=== PATIENT | female | born 1990 | race Native Hawaiian/Other Pacific Islander ===

== ENCOUNTER → 2018-07-30 15:51 | Outpatient (CLI) | payer OTHER, SELFPAY ==
--- NOTE | 2018-07-30 15:54 | DI.US.S_ITS ---
PROCEDURE: US OB <= 14 WEEKS FETUS INDICATIONS: Dating : initial US OUTSIDE/PRIOR DATING DATA: Last menstrual period (LMP): 05/30/18. LMP-based estimated date of delivery (LUIS): 03/06/19. First dating scan (date and location): 07/30/18. Estimated date of delivery (LUIS) from first dating scan: 03/06/19. TECHNIQUE: Real-time scanning was performed of the fetus and maternal pelvic organs, with image documentation. Endovaginal scanning was also performed to better visualize the fetus and maternal ovaries. COMPARISON: None. FINDINGS: Embryo: [place]-rump length measures 2.1 cm corresponding to 8 weeks 5 days. Embryonic heart rate measures 175 beats per minute. Measurement variability in dating: +/- 4 weeks by LMP, +/- 7 days by mean sac diameter (use before 6 weeks gestation if crown-rump length not able to be measured), +/- 5 days by crown-rump length (up to 8 weeks 6 days gestation), +/- 7 days by crown-rump length (up to 13 weeks 6 days gestation). Maternal organs: Ovaries within normal limits. Limited images through the kidneys demonstrate no hydronephrosis. IMPRESSION: 8 week 5 day single living IUP. Dictated by: Per Gore [facility] Interpreted: Trino Watkins MD on 07/31/2018 at 9:03 Approved by: Trino Watkins M.D. on 07/31/2018 at 10:44
[2018-07-30 16:56] LABS: Add Manual Diff / Slide Review NO; Basophils Absolute Auto 0 /uL (0-100); Basophils Percent Auto 0.3 % (0-2); Eosinophils Absolute Auto 100 /uL (0-450); Eosinophils Percent Auto 0.4 % (2-4); Hematocrit 41.9 % (36-46); Lymphocytes Absolute Auto 1800 /uL (1100-4500); Mean Corpuscular HGB Conc 33.4 % (30-36); Mean Corpuscular Hemoglobin 29.9 PG (26-34); Mean Corpuscular Volume 89.6 fL (80-100); Monocytes Absolute Auto 1100 /uL (0-900); Monocytes Percent Auto 7.8 % (3-14); Neutrophils Absolute Auto 11100 /uL (1500-7000); Neutrophils Percent Auto 78.5 % (50-75); Platelet Count 333 X10^3/uL (150-400); Red Blood Cell Count 4.67 X10^6/uL (4.0-5.2); Red Cell Distribution Width 12.9 % (11.6-14.8); White Blood Cell Count 14.1 X10^3/uL (4.5-11.0)
[2018-07-30 17:36] LABS: Hepatitis B Surface Antigen NEGATIVE s/c (NEGATIVE)
[2018-07-30 17:54] LABS: HIV 1 and 2 Antibody NEGATIVE (NEGATIVE); Hep C Virus Ab w/Reflex Quant NEGATIVE s/c (NEGATIVE)
[2018-07-30 18:48] LABS: Appearance Urine UA CLEAR; Bilirubin Urine UA NEGATIVE (NEGATIVE); Color Urine UA YELLOW; Glucose Urine UA NEGATIVE (Negative); Ketones Urine UA NEGATIVE (NEGATIVE); Leukocyte Esterase Urine UA 1+ (NEGATIVE); Nitrite Urine UA NEGATIVE (Negative); Occult Blood Urine UA 2+ (Negative); Protein Urine UA NEGATIVE (Negative); Specific Gravity Urine UA 1.025 (1.000-1.035); Urobilinogen Urine UA 0.2 E.U./dL (0.2); pH Urine UA 5.5 (4.5-8.0)
[2018-07-30 18:53] LABS: RBC Urine 5-10/HPF (0-5/HPF); WBC Urine 5-10/HPF (0-5/HPF)
[2018-07-30 18:54] LABS: Bacteria Urine Few (2-10); Squamous Epithelial Cell Urine 5-10 /HPF
[2018-08-01 14:07] LABS: RPR Screen Nonreactive (Nonreactive)
== END ==
PROVIDERS: PCP Physician Assistant Medical; Visit Provider Family Medicine
DX: Z34.81 Encounter for supervision of other normal pregnancy, first trimester (principal); Z3A.08 8 weeks gestation of pregnancy
CPT/HCPCS: 36415; 76801; 76817; 80055; 81003; 81015; 86703; 86787; 86803; 86850; 86900; 86901; 87086

== ENCOUNTER → 2018-09-07 09:41 | Outpatient (CLI) | payer OTHER, SELFPAY | PROVIDERS: PCP Physician Assistant Medical; Visit Provider Family Medicine | DX: Z34.82 Encounter for supervision of other normal pregnancy, second trimester (principal); Z3A.14 14 weeks gestation of pregnancy | CPT/HCPCS: 87086 ==

== ENCOUNTER → 2018-10-06 09:28 | Outpatient (CLI) | payer BC, SELFPAY ==
[2018-10-12 09:05] LABS: AFP, Serum 42.8 ng/mL; Calc Gestational Age 18.3; Cigarette Smoker N; Donated Egg NOT GIVEN; Donor Egg Age NOT GIVEN; Estriol, Free 1.27 ng/mL; Inhibin A, Dimeric 154 pg/mL; Maternal Ethnicity OTHER; Maternal Weight 223 lbs; Number of Fetuses 1; Previous Pregnancy Down Syndro NOT GIVEN; hCG, MoM 1.44; hCG, Serum 29.1 IU/mL
== END ==
PROVIDERS: PCP Physician Assistant Medical; Visit Provider Family Medicine
DX: Z34.82 Encounter for supervision of other normal pregnancy, second trimester (principal); Z3A.18 18 weeks gestation of pregnancy
CPT/HCPCS: 36415; 82105; 82677; 84702; 86336

== ENCOUNTER → 2018-10-19 07:10 | Outpatient (CLI) | payer BC, SELFPAY ==
--- NOTE | 2018-10-19 07:13 | DI.US.S_ITS ---
PROCEDURE: US OB >= 14 WEEKS FETUS INDICATIONS: ANATOMIC SURVEY OUTSIDE/PRIOR DATING DATA: Last menstrual period (LMP): 05/30/18. LMP-based estimated date of delivery (LUIS): 03/06/19. First dating scan (date and location): 07/30/18. Estimated date of delivery (LUIS) from first dating scan: 03/06/19. TECHNIQUE: Real-time scanning was performed of the fetus, with image documentation and biometric measurements. Endovaginal scanning: Not needed for this study COMPARISON: 07/30/18 FINDINGS: General: A single living intrauterine gestation is present. Presentation: Vertex. Placenta: Placental position is anterior, without previa. Amniotic fluid index: 13.5 cm, normal range is 5-24 cm. heart rate: 147 beats per minute. Maternal cervical canal: 4.1 cm long. Normal lower limit is 2.5 cm. biometrics: Biparietal diameter: 5.2 cm, 21 weeks 6 days Head circumference: 19.1 cm, 21 weeks 3 days Abdominal circumference: 16.9 cm, 21 weeks 6 days Femur length: 3.2 cm, 20 weeks 0 days Estimated gestational age from initial scan: 20 weeks 2 days Composite gestational age from present scan: 21 weeks 2 days Estimated weight and percentile: 402 g, 80th percentile Measurement variability for biometric dating: +/- 7 days from 14 weeks to 15 weeks 6 days gestation, +/- 10 days from 16 weeks to 21 weeks 6 days gestation, +/- 2 weeks from 22 weeks to 27 weeks 6 days gestation, +/- 3 weeks for 28 weeks gestation or later. weight reference: 4500 g or EFW >90/95% is considered macrosomia or large for gestational age. EFW <10% is small for gestational age. EFW 5% or less is considered intra-uterine growth restriction. Anatomic survey: Neuro: Ventricles are non-dilated at less than 10 mm. Cisterna magna is normal at 3-11 mm. Cerebellum is normal in size and morphology. Nuchal skin fold: Normal at less than 6 mm between 14-21 weeks gestational age. Face: Nose and lips, facial profile are normal. Spine: No evidence for spina bifida. Heart: 4-chambered heart is present, with normal ventricular outflow tracts. Diaphragm: Diaphragm is intact. Stomach: Left-sided stomach is present. Kidneys: No hydronephrosis. Normal is less than 5 mm in 2nd trimester, less than 7 mm in 3rd trimester. Cord: 3-vessel cord has orthotopic insertion. Bladder: Normal in size. Extremities: All 4 extremities identified. IMPRESSION: Appropriate interval growth, no anomaly found, delivery date is projected to be centered on 03/06/19. Dictated by: Binu Monterroso M.D. on 10/19/2018 at 9:17 Approved by: Binu Monterroso M.D. on 10/19/2018 at 9:20
== END ==
PROVIDERS: PCP Physician Assistant Medical; Visit Provider Family Medicine
DX: Z34.82 Encounter for supervision of other normal pregnancy, second trimester (principal); Z3A.21 21 weeks gestation of pregnancy
CPT/HCPCS: 76811

== ENCOUNTER → 2018-11-21 08:05 | Outpatient (CLI) | payer BC, SELFPAY ==
[2018-11-21 09:57] LABS: Hemoglobin 12.7 g/dL (12.0-16.0)
[2018-11-21 10:26] LABS: GTT (PREG) 1 Hour PP 50gm Dose 117 mg/dL (76-139)
== END ==
PROVIDERS: PCP Physician Assistant Medical; Visit Provider Family Medicine
DX: Z34.82 Encounter for supervision of other normal pregnancy, second trimester (principal); Z3A.22 22 weeks gestation of pregnancy
CPT/HCPCS: 36415; 82950; 85014; 85018

== ENCOUNTER → 2019-02-10 09:15 | Outpatient (CLI) | payer BC, SELFPAY ==
[2019-02-11 15:48] LABS: Strep Grp B PCR NEG for Grp B Strep
== END ==
PROVIDERS: PCP Physician Assistant Medical; Visit Provider Family Medicine
DX: Z3A.36 36 weeks gestation of pregnancy (principal)
CPT/HCPCS: 87653

== ENCOUNTER 2019-03-10 10:49 | Inpatient (IN) | payer BC, SELFPAY ==
[2019-03-10 12:28] LABS: Add Manual Diff / Slide Review NO; Basophils Absolute Auto 100 /uL (0-100); Basophils Percent Auto 0.6 % (0-2); Eosinophils Absolute Auto 0 /uL (0-450); Eosinophils Percent Auto 0.1 % (2-4); Hematocrit 36.2 % (36-46); Lymphocytes Absolute Auto 1200 /uL (1100-4500); Lymphocytes Percent Auto 9.5 % (25-40); Mean Corpuscular HGB Conc 33.1 % (30-36); Mean Corpuscular Hemoglobin 27.6 PG (26-34); Mean Corpuscular Volume 83.3 fL (80-100); Monocytes Absolute Auto 800 /uL (0-900); Neutrophils Absolute Auto 10800 /uL (1500-7000); Neutrophils Percent Auto 83.8 % (50-75); Platelet Count 297 X10^3/uL (150-400); Red Blood Cell Count 4.34 X10^6/uL (4.0-5.2); Red Cell Distribution Width 13.8 % (11.6-14.8); White Blood Cell Count 12.9 X10^3/uL (4.5-11.0)
--- NOTE | 2019-03-10 12:31 | P.HPOB_ITS ---
OB HPI Date/Time Date of admission: 03/10/19 Date Patient Seen: 03/10/19 Time Patient Seen: 12:31 History of Present Condition Chief complaint: OBS : 2 Para: 1 Estimated Date of Delivery: 03/07/19 Estimated Gestational Age (weeks): 40 Narrative: Wes Fraser is a 28 year old female admitted in active labor History of Present care: good care, initiated at week # (10), number of visits (13) and pounds weight gain (7) Dating criteria: LMP confirmed by 1st trimester US Ultrasounds: normal mid trimester US Obstetrical complications: none Medical complications: none Preadmission Labs Blood type: A (+) positive -: Antibody screen: negative, GBS status: negative, HBsAG: negative, HIV: negative and RPR/VDLR: negative -: Rubella: immune HCAB: negative Quad screen: Normal 1 hr GTT: 117 Prior (ies) History: 01/20/2013 40 week vaginal delivery female epidural catheter Evaluation Evaluation Baseline heart rate: 120 Variability: Moderate (11-25) monitor accelerations: Present monitor decelerations: Absent Uterine Contraction Intensity: Moderate Category of Tracing: I Cervical dilation (cm): 5 PFSH Social History Smoking Status: Former smoker Meds Home Medications and Allergies Home Medications Medication Instructions Recorded Confirmed Type acetaminophen 325 mg capsule 325 mg PO Q6H PRN 07/29/18 07/29/18 History prenat.vits,fabian,kkk-thxl-mapmo 1 tab PO DAILY 07/29/18 07/29/18 History Allergies Allergy/AdvReac Type Severity Reaction Status Date / Time No Known Drug Allergies Allergy Verified 02/24/19 08:49 Review of Systems Review of Systems Narrative: Patient denies any headaches, scotomata, epigastric pain. No leakage of fluid. No fevers. ROS Unobtainable: All systems reviewed & are unremarkable except as noted in HPI and below Exam Narrative Exam Narrative: HEENT exam within normal limits. Lungs are clear to auscultation percussion. Heart is regular rate and rhythm no S3-S4 or murmurs. Abdomen is gravid. Fetus is vertex. Extremities with trace edema and nontender . Objective Labs Result Diagrams: 03/10/19 12:20 Assessment and Plan Assessment and Plan Assessment and Plan narrative: 40 week gestation in active labor. Patient is requesting epidural catheter. Anticipate vaginal delivery.
[2019-03-10 14:17] VITALS: BP 141/86
[2019-03-10] MEDS: LACTATED RINGERS 1,000 ML 100 ML IV ×2 (16:43→18:05)
[2019-03-10] MEDS: OXYTOCIN PREMIX 30 UNIT/500 ML PLAST..BAG IV (19:11)
[2019-03-10] MEDS: FENT 2MCG/ML BUPIV 0.125% EPI 200 MCG/100 ML PLAST..BAG 13.5 MCG EPIDURAL (21:10)
--- NOTE | 2019-03-10 23:02 | PM.OBPRVD ---
Labor & Delivery Delivery date: 03/10/19 Cervical ripening method: none Induction method: none Delivery augmentation: rupture of membranes Delivery monitor: external FHT, external uterine and internal uterine Route of delivery: L&D Laceration Description: Perineal - 2nd Degree Delivery repair: chromic (3 0) Estimated blood loss (mL): 100 Anesthesia type: Epidural Narrative: Patient arrived on Labor and delivery in active labor. She received an epidural catheter for pain control. She was AROM for clear fluid. There was very slow progress after that so a small amount of Pitocin was begun. The fetus had a prolonged bradycardic episode for about 3 minutes. Eventually responded to position change, fluid bolus, DC the Pitocin. A internal pressure catheter was placed. The patient had intermittent bradycardic episodes not as long after that. heart tones were reassuring in between the bradycardic episodes. The patient delivered spontaneously, over an intact perineum. The viable female infant was placed on maternal abdomen. After the cord stopped pulsating the cord was clamped, cut, cord bloods obtained. The placenta delivered spontaneously, intact, with 3 vessels. Patient had a second-degree perineal tear. No cervical or vaginal tears. The tear was repaired with 3 0 chromic suture in the usual 2 layer fashion. Both infant and mother doing well. A loop of the cord was delivered with the chest this may have been the cause of the decelerations. [place] Baby 1: Infant gender: Female Presentation: vertex position: Right Occiput Anterior Placenta delivery description: Spontaneous cord vessel description: 3 Vessels score (1 min): 9 score (5 min): 9 Plan for aftercare: Routine post vaginal delivery
[2019-03-11] MEDS: LANOLIN OINT 7 GM 1 APPLIC TOP (01:26)
[2019-03-11] MEDS: IBUPROFEN 600 MG TABLET PO ×4 (01:27→19:27)
[2019-03-11] MEDS: DERMOPLAST SPRAY 20% 60 ML 1 SPRAY TOP (01:27)
[2019-03-11 06:53] LABS: Hematocrit 35.8 % (36-46); Hemoglobin 11.7 g/dL (12.0-16.0)
--- NOTE | 2019-03-11 12:44 | P.PNOB_ITS ---
Subjective - OB Subjective Patient comments: no complaints [place] baby status: doing well feeding status: exclusively breast feeding Date Patient Seen: 03/11/19 Time Patient Seen: 12:44 Exam Vital Signs (past 8 hours): Blood pressure 110/73, pulse 75, temperature 98? Narrative Exam Narrative: Abdomen is soft, nontender. Uterus is firm, at U, nontender. Mild lochia. Extremities with out edema and nontender. Objective Labs Result Diagrams: 03/11/19 06:40 Labs: Laboratory Results - last 24 hr 03/10/19 03/11/19 12:20 06:40 Hgb 11.7 L Hct 35.8 L Blood Type A Positive Antibody Screen Negative Assessment & Plan Assessment and Plan (1) Vaginal delivery: Status: Acute Assessment and plan: Patient is day 1. Doing well. Routine care. Probable home tomorrow. Current Visit: Yes Time Spent With Patient Time: Total time spent is greater than 50% in coordination of care (as documented) at patient's floor/unit and/or counseling patient: Time with patient: less than 15 minutes
[2019-03-11 19:27] VITALS: TEMP 36.6
[2019-03-12] MEDS: IBUPROFEN 600 MG TABLET PO ×2 (04:18→11:14)
--- NOTE | 2019-03-12 07:58 | PM.OBDS.1 ---
Discharge Providers Provider Date of admission: 03/10/19 10:49 Discharge Date: 03/12/19 Primary care physician: Cinthia Melgar PA-C Consults: 03/10/19 23:08 Consult to Manager Of Community Relations Routine Comment: Discharge provider: Fany Olivares MD Summary Hospital Course Date Patient Seen: 03/12/19 Time Patient Seen: 08:00 Procedures: Epidural catheter, vaginal delivery, repair of second-degree laceration Hospital Course: Patient arrived on Labor and delivery in active labor. She received an epidural catheter for pain control. She had a spontaneous vaginal delivery of a viable female . Patient and are doing well. Currently supplementing with breast-feeding. Blood pressure 98/68, pulse 67, temperature 97? Abdomen is soft, nontender. Uterus is firm, at U, nontender. The repair is intact. Mild lochia. Extremities without edema and nontender. Patient's blood type is A positive, she is rubella immune Peripartum Data Infant Delivery Method: Natural Vaginal Laceration description: Perineal - 2nd Degree Procedures: Epidural catheter, vaginal delivery, repair of second-degree tear complications: none 1: Gender: Female Disposition of : home Discharge Diagnosis (1) Vaginal delivery: Status: Acute Status at Discharge Cognitive/behavioral status at discharge: oriented Functional status at discharge: independent ambulation Overall status at discharge: patient is progressing back to baseline Time Spent with Patient Time attestation: Total time spent providing and/or coordinating discharge services: Time spent: Less than 30 minutes Objective Labs Result Diagrams: 03/11/19 06:40 Discharge Plan Discharge Plan Patient Disposition: Home Discharge Med Rec/Prescriptions Prescriptions: Continued prenat.vits,fabian,gap-pexa-pywsa tablet 1 tab PO DAILY RF: 0 acetaminophen [Tylenol] 325 mg capsule 325 mg PO Q6H PRN (Reason: Pain, Mild) RF: 0 Follow up/Referrals: Cinthia Melgar PA-C [Primary Care Provider] - Estuardo Gonzalez MD [Physician] - 6 Weeks Provider Discharge Instructions Diet: Regular Activity: Nothing in vagina for 6 weeks Skin/Wound/Dressing Care Report to your healthcare provider any signs of infection, such as:: chills, fever and increased pain Discharge Data Primary Care Provider: Cinthia Melgar
[2019-03-12 11:33] VITALS: BP 104/72; PULSE 76; RESP 16; TEMP 36.3
== END 2019-03-12 12:45 | disposition home or self-care (01) | DRG 807 ==
PROVIDERS: Family Medicine; Admitting Provider Specialist; PCP Physician Assistant Medical; Visit Provider Specialist
DX: O76 Abnormality in fetal heart rate and rhythm complicating labor and delivery (principal); Z37.0 Single live birth; Z3A.40 40 weeks gestation of pregnancy; O70.1 Second degree perineal laceration during delivery
CPT/HCPCS: 01967; 36415; 59050; 59400; 59409; 76815; 85014; 85018; 85025; 86850; 86900; 86901; G0379; J2590

== ENCOUNTER 2020-11-06 16:53 | Emergency (ER) | payer BC, SELFPAY ==
[2020-11-06 17:02] VITALS: BP 144/67; PULSE 81; RESP 16; TEMP 36.9; O2SAT 97; BMI 39.8
--- NOTE | 2020-11-06 17:03 | ED_ITS ---
HPI - General Adult <Alli Galvez DO - Last Filed: 11/07/20 07:12> General Chief complaint: Abdominal Pain Stated complaint: REALLY BAD ABD PAIN Time Seen by Provider: 11/06/20 17:00 Source: patient Mode of arrival: Ambulatory Limitations: no limitations History of Present Illness HPI narrative: Patient is an otherwise healthy 30-year-old female here for evaluation of upper abdominal discomfort for the past couple years. She states that it started after she gave a couple years ago. Does seem to occur more after she eats. No nausea vomiting. Has not seen anybody for the symptoms prior to arrival. No urinary symptoms. No change in bowel habits. No fevers. Related Data Home Medications Medication Instructions Recorded Confirmed acetaminophen 325 mg capsule 325 mg PO Q6H PRN 07/29/18 04/21/19 prenat.vits,fabian,myk-ayou-ydmwg 1 tab PO DAILY 07/29/18 04/21/19 Previous Rx's Medication Instructions Recorded hydrocodone-acetaminophen 1 tab PO Q4-6H PRN #10 tab 11/06/20 ondansetron 4 mg PO TID-QID PRN #10 tab 11/06/20 Allergies Allergy/AdvReac Type Severity Reaction Status Date / Time No Known Drug Allergies Allergy Verified 04/21/19 14:22 Review of Systems <Alli Galvez DO - Last Filed: 11/07/20 07:12> Constitutional Constitutional: Denies fever(s) and Denies headache(s) ENT Ears, Nose, Mouth, and Throat: Denies headache(s) Cardiovascular Cardiovascular: Denies chest pain and Denies dyspnea Respiratory Respiratory: Denies dyspnea Gastrointestinal Gastrointestinal: Reports abdominal pain, Denies change in bowel habits, Reports nausea and Denies vomiting Genitourinary Genitourinary: Denies dysuria Genitourinary: Denies dysuria Musculoskeletal Musculoskeletal: Denies arthralgias and Denies myalgias Integumentary/Breasts Skin/Breast: Denies rash Neurologic Neurologic: Denies behavioral changes and Denies headache(s) Psychiatric Psychiatric: Denies behavioral changes Hematologic/Lymphatic On Anticoagulants: No Allergic/Immunologic Allergic/Immunologic: Denies urticaria Patient History <Alli Galvez DO - Last Filed: 11/07/20 07:12> Medical History Vaginal delivery Social History Smoking Status: Former smoker Smoking Status: Former smoker Exam <Alli Galvez DO - Last Filed: 11/07/20 07:12> Initial Vital Signs Initial Vital Signs: Vital Signs Temperature 98.4 F 11/06/20 17:02 Pulse Rate 81 11/06/20 17:02 Respiratory Rate 16 11/06/20 17:02 Blood Pressure 144/67 H 11/06/20 17:02 Pulse Oximetry 97 11/06/20 17:02 Const General: cooperative, comfortable, well developed and well groomed Limitations: mental status not altered HENMT Head: normal to inspection and normocephalic Resp Effort & Inspection: normal respiratory effort Auscultation: clear to auscultation bilaterally Cardio Rate: regular rate Rhythm: regular rhythm GI Inspection: non-distended Palpation: soft, No firm and tender (Bilateral upper abdomen) Back/Spine/Pelvis Back: No CVA tenderness Skin Lesions: no lesions Rashes: no rashes Neuro General: patient alert, patient awake and patient oriented x3 Cognition: normal cognition Speech: speech normal Extrem General: normal to inspection and capillary refill normal Psych Appearance: grossly normal and well kempt <Navdeep Lu DO - Last Filed: 11/06/20 21:48> Initial Vital Signs Initial Vital Signs: Vital Signs Temperature 98.4 F 11/06/20 17:02 Pulse Rate 81 11/06/20 17:02 Respiratory Rate 16 11/06/20 17:02 Blood Pressure 144/67 H 11/06/20 17:02 Pulse Oximetry 97 11/06/20 17:02 Course <Alli Galvez DO - Last Filed: 11/07/20 07:12> Orders Ordered: Discontinued Medications Sodium Chloride (Normal Saline 0.9%) 1,000 mls @ 1,000 mls/hr IV BOLUS ONE Stop: 11/06/20 19:11 Last Infusion: 11/06/20 19:44 Dose: 0 mls/hr Documented by: Admin: 11/06/20 18:31 Dose: 1,000 mls/hr Documented by: WILSON Vital Signs Vital signs: Vital Signs - 8 hr 11/06/20 17:02 11/06/20 19:11 Temperature 98.4 F Pulse Rate 81 72 Respiratory Rate 16 15 Blood Pressure 144/67 H 115/70 Pulse Oximetry 97 100 <Navdeep Lu DO - Last Filed: 11/06/20 21:48> Course Course Narrative: However see this patient in sign-out from Dr. Galvez. I performed independent history and physical exam. Patient has no pain and has had no vomiting for the duration of her visit. She does have a slight bump in her LFTs but no surgical findings on imaging regarding her gallbladder. She is feeling quite well, tolerating orals, not septic. She has been given extensive return precautions and questions have been answered to her apparent satisfaction Orders Ordered: Discontinued Medications Sodium Chloride (Normal Saline 0.9%) 1,000 mls @ 1,000 mls/hr IV BOLUS ONE Stop: 11/06/20 19:11 Last Infusion: 11/06/20 19:44 Dose: 0 mls/hr Documented by: Admin: 11/06/20 18:31 Dose: 1,000 mls/hr Documented by: WILSON Vital Signs Vital signs: Vital Signs - 8 hr 11/06/20 17:02 11/06/20 19:11 Temperature 98.4 F Pulse Rate 81 72 Respiratory Rate 16 15 Blood Pressure 144/67 H 115/70 Pulse Oximetry 97 100 Medical Decision Making <Alli Galvez DO - Last Filed: 11/07/20 07:12> Lab Data Lab results reviewed: Yes I reviewed the patient's lab results. Result diagrams: 11/06/20 17:10 11/06/20 17:10 Labs: Lab Results 11/06/20 11/06/20 Range/Units 17:10 17:10 WBC 21.1 H (4.5-11.0) X10^3/uL RBC 4.98 (4.0-5.2) X10^6/uL Hgb 15.0 (12.0-16.0) g/dL Hct 43.8 (36-46) % MCV 88.0 (80-100) fL MCH 30.2 (26-34) PG MCHC 34.3 (30-36) % RDW 12.8 (11.6-14.8) % Plt Count 343 (150-400) X10^3/uL Neut % (Auto) 85.6 H (50-75) % Lymph % (Auto) 8.7 L (25-40) % [place] % (Auto) 5.2 (3-14) % Eos % (Auto) 0.2 L (2-4) % Baso % (Auto) 0.3 (0-2) % Neut # (Auto) 50055 H (6041-6759) /uL Lymph # (Auto) 1800 (2518-3856) /uL [place] # (Auto) 1100 H (0-900) /uL Eos # (Auto) 0 (0-450) /uL Baso # (Auto) 100 (0-100) /uL Sodium 139 (137-145) mmol/L Potassium 3.9 (3.4-5.1) mmol/L Chloride 106 (98-107) mmol/L Carbon Dioxide 23 (22-32) mmol/L BUN 14 (7-17) mg/dL Creatinine 0.63 (0.52-1.04) mg/dL Estimated GFR > 60.0 (>60) mL/min BUN/Creatinine Ratio 22.2 H (6-22) Glucose 110 H (70-100) mg/dL Calcium 10.1 (8.4-10.2) mg/dL Total Bilirubin 0.7 (0.2-1.3) mg/dL AST 204 H (14-36) IU/L ALT 106 H (<35) IU/L Alkaline Phosphatase 100 (38-126) U/L Total Protein 7.9 (6.3-8.2) g/dL Albumin 4.6 (3.5-5.0) g/dL Globulin 3.3 (1.7-4.1) g/dL Albumin/Globulin Ratio 1.4 (1.0-2.8) Lipase 90 (23-300) U/L Point of Care Testing Test Results Negative Urine Dip Bedside Urine Glucose Negative Bedside Urine Bilirubin - Negative Bedside Urine Ketone - Negative Urine Specific [place] 1.030 Bedside Urine Occult Blood + Bedside Urine pH 6.0 Bedside Urine Protein - Negative Bedside Urine Urobilinogen +/- 1mg Bedside Urine Nitrite - Negative Bedside Urine Leukocytes - Negative Esterase Point of care testing: Point of Care Testing Test Results Negative Urine Dip Bedside Urine Glucose Negative Bedside Urine Bilirubin - Negative Bedside Urine Ketone - Negative Urine Specific [place] 1.030 Bedside Urine Occult Blood + Bedside Urine pH 6.0 Bedside Urine Protein - Negative Bedside Urine Urobilinogen +/- 1mg Bedside Urine Nitrite - Negative Bedside Urine Leukocytes - Negative Esterase Imaging Data US - abdomen: Radiologist's Impression: [address] [id number] ReportSigned Patient: Wes Fraser LMR#: [id number]: 1990Acct:[id number]/Sex: 30 / FDate of Service: 11/06/20Loc: EDAccession Number: [id number] Procedure: US abdomen limited Ordering Provider: Alli Galvez D.O. PROCEDURE: US ABDOMEN LIMITED INDICATIONS: Right upper quadrant abdominal pain after eating TECHNIQUE: Real-time scanning was performed of the abdominal and retroperitoneal organs, with image documentation. COMPARISON: None. FINDINGS: Liver: Liver is normal in size and homogeneous in echotexture. Gallbladder: The gallbladder contains numerous gallstones without associated wall thickening, pericholecystic fluid or abnormal sonographic Hyl[place] sign. Biliary ducts: Intrahepatic bile ducts are non-dilated. Extrahepatic bile duct caliber measures 6 mm. Normal is 6-7 mm or less in diameter, or 10 mm or less post-cholecystectomy. Pancreas: Visualized portions of the pancreas are sonographically normal. Miscellaneous: No free abdominal fluid. IMPRESSION: Cholelithiasis without sonographic evidence for acute cholecystitis. Dictated by: Sidney Rene M.D. on 11/06/2020 at 18:05 Approved by: Sidney Rene M.D. on 11/06/2020 at 18:06 [facility] Narrative Medical decision making narrative: Patient has a relatively benign abdominal exam and has had symptoms off and on for the past 2 years. Does have a slight elevation in her LFTs. Has a normal lipase. Ultrasound shows cholelithiasis without signs of cholecystitis. She does have a fairly significant leukocytosis which could be related to Potential biliary colic however I feel that her physical exam today is not 100% consistent with that. A CT scan of the abdomen and pelvis is ordered to evaluate for other potential etiology. Care turned over to Dr. Lu to follow-up and disposition. <Navdeep Lu DO - Last Filed: 11/06/20 21:48> Lab Data Labs: Lab Results 11/06/20 11/06/20 Range/Units 17:10 17:10 WBC 21.1 H (4.5-11.0) X10^3/uL RBC 4.98 (4.0-5.2) X10^6/uL Hgb 15.0 (12.0-16.0) g/dL Hct 43.8 (36-46) % MCV 88.0 (80-100) fL MCH 30.2 (26-34) PG MCHC 34.3 (30-36) % RDW 12.8 (11.6-14.8) % Plt Count 343 (150-400) X10^3/uL Neut % (Auto) 85.6 H (50-75) % Lymph % (Auto) 8.7 L (25-40) % [place] % (Auto) 5.2 (3-14) % Eos % (Auto) 0.2 L (2-4) % Baso % (Auto) 0.3 (0-2) % Neut # (Auto) 16874 H (9406-2671) /uL Lymph # (Auto) 1800 (6902-1372) /uL [place] # (Auto) 1100 H (0-900) /uL Eos # (Auto) 0 (0-450) /uL Baso # (Auto) 100 (0-100) /uL Sodium 139 (137-145) mmol/L Potassium 3.9 (3.4-5.1) mmol/L Chloride 106 (98-107) mmol/L Carbon Dioxide 23 (22-32) mmol/L BUN 14 (7-17) mg/dL Creatinine 0.63 (0.52-1.04) mg/dL Estimated GFR > 60.0 (>60) mL/min BUN/Creatinine Ratio 22.2 H (6-22) Glucose 110 H (70-100) mg/dL Calcium 10.1 (8.4-10.2) mg/dL Total Bilirubin 0.7 (0.2-1.3) mg/dL AST 204 H (14-36) IU/L ALT 106 H (<35) IU/L Alkaline Phosphatase 100 (38-126) U/L Total Protein 7.9 (6.3-8.2) g/dL Albumin 4.6 (3.5-5.0) g/dL Globulin 3.3 (1.7-4.1) g/dL Albumin/Globulin Ratio 1.4 (1.0-2.8) Lipase 90 (23-300) U/L Point of Care Testing Test Results Negative Urine Dip Bedside Urine Glucose Negative Bedside Urine Bilirubin - Negative Bedside Urine Ketone - Negative Urine Specific [place] 1.030 Bedside Urine Occult Blood + Bedside Urine pH 6.0 Bedside Urine Protein - Negative Bedside Urine Urobilinogen +/- 1mg Bedside Urine Nitrite - Negative Bedside Urine Leukocytes - Negative Esterase Point of care testing: Point of Care Testing Test Results Negative Urine Dip Bedside Urine Glucose Negative Bedside Urine Bilirubin - Negative Bedside Urine Ketone - Negative Urine Specific [place] 1.030 Bedside Urine Occult Blood + Bedside Urine pH 6.0 Bedside Urine Protein - Negative Bedside Urine Urobilinogen +/- 1mg Bedside Urine Nitrite - Negative Bedside Urine Leukocytes - Negative Esterase Discharge Plan Departure Patient Disposition: Home Clinical Impression: Acute epigastric pain, Abnormal transaminases Leukocytosis Qualifiers: Leukocytosis type: unspecified Qualified Code(s): D72.829 - Elevated white blood cell count, unspecified Instructions: DI for Abdominal Pain-Adult Activity Restrictions/Additional Instructions: *You have been diagnosed with [epigastric pain with elevation of white blood cells but reassuring imaging including ultrasound and CT scan] *What to do: *Take medications as directed *Follow up with your primary care provider in 2-3 days, call for an appointment. Let them know you were seen in the Emergency Department and that we ask that you be seen in follow up. Also, as Dr. Galvez discussed we will give you contact information for the local surgeon to follow up with for further evaluation and monitoring your gallbladder *Return to ER if you should have any new, worsening or concerning symptoms, such as [increasing pain, fever, chills, persistent vomiting or other bothersome symptoms] Prescriptions: New ondansetron 4 mg tablet,disintegrating 4 mg PO TID-QID PRN (Reason: nausea and vomiting) Qty: 10 RF: 0 hydrocodone-acetaminophen 5-325 mg tablet 1 tab PO Q4-6H PRN (Reason: pain) Qty: 10 RF: 0 No Action prenat.vits,fabian,uyq-yzak-nbtlb tablet 1 tab PO DAILY RF: 0 acetaminophen [Tylenol] 325 mg capsule 325 mg PO Q6H PRN (Reason: Pain, Mild) RF: 0 Referrals: Cinthia Melgar PA-C [Primary Care Provider] - Aristeo Sherman MD [Physician] -
[2020-11-06 17:17] LABS: Add Manual Diff / Slide Review NO; Basophils Absolute Auto 100 /uL (0-100); Basophils Percent Auto 0.3 % (0-2); Eosinophils Absolute Auto 0 /uL (0-450); Eosinophils Percent Auto 0.2 % (2-4); Hematocrit 43.8 % (36-46); Lymphocytes Absolute Auto 1800 /uL (1100-4500); Lymphocytes Percent Auto 8.7 % (25-40); Mean Corpuscular HGB Conc 34.3 % (30-36); Mean Corpuscular Hemoglobin 30.2 PG (26-34); Monocytes Absolute Auto 1100 /uL (0-900); Monocytes Percent Auto 5.2 % (3-14); Neutrophils Absolute Auto 18100 /uL (1500-7000); Neutrophils Percent Auto 85.6 % (50-75); Platelet Count 343 X10^3/uL (150-400); Red Blood Cell Count 4.98 X10^6/uL (4.0-5.2); Red Cell Distribution Width 12.8 % (11.6-14.8); White Blood Cell Count 21.1 X10^3/uL (4.5-11.0)
[2020-11-06 18:03] LABS: Alanine Aminotransferase 106 IU/L (<35); Albumin 4.6 g/dL (3.5-5.0); Albumin Globulin Ratio 1.4 (1.0-2.8); Alkaline Phosphatase 100 U/L (38-126); Aspartate Aminotransferase 204 IU/L (14-36); BUN Creatinine Ratio 22.2 (6-22); Bilirubin Total 0.7 mg/dL (0.2-1.3); Blood Urea Nitrogen 14 mg/dL (7-17); Calcium 10.1 mg/dL (8.4-10.2); Carbon Dioxide 23 mmol/L (22-32); Chloride 106 mmol/L (98-107); Estimated Glomerular Filt Rate > 60.0 mL/min (>60); Globulin 3.3 g/dL (1.7-4.1); Glucose 110 mg/dL (70-100); HEMOLYSIS 32 (0-50); Lipase 90 U/L (23-300); Potassium 3.9 mmol/L (3.4-5.1); Sodium 139 mmol/L (137-145); Total Protein 7.9 g/dL (6.3-8.2)
--- NOTE | 2020-11-06 18:16 | DI.CT.S_ITS ---
PROCEDURE: CT ABDOMEN PELVIS W CON INDICATIONS: Generalized abdominal pain, leukocytosis TECHNIQUE: After the administration of intravenous contrast, 5 mm thick sections acquired from the diaphragm to the symphysis. 5 mm coronal and sagittal reformats were acquired. For radiation dose reduction, the following was used: automated exposure control, adjustment of mA and/or kV according to patient size. COMPARISON: [facility], , US ABDOMEN LIMITED, 11/06/2020, 16:35. FINDINGS: Image quality: Excellent. ABDOMEN: Lung bases: Lung bases are clear. Heart size is normal. Solid organs: Liver is normal in size and enhancement. Gallbladder contains numerous gallstones as noted on comparison ultrasound. No significant pericholecystic inflammatory stranding. The common bile duct is prominent measuring approximately 7-8 mm in diameter. Biliary system is otherwise non dilated. Pancreas enhances normally. Spleen is normal in size and enhancement. No adrenal nodules. Kidneys demonstrate normal size and enhancement, without hydronephrosis. Peritoneum and bowel: Bowel loops demonstrate normal wall thickness and caliber. No free fluid or air. Normal appendix. Nodes and vessels: No retroperitoneal or mesenteric adenopathy by size criteria. Aorta and inferior vena cava are normal in size. Miscellaneous: No ventral hernias. PELVIS: Genitourinary: Bladder wall thickness is normal. Miscellaneous: No inguinal hernias or adenopathy. Bones: No suspicious bony lesions. No vertebral body compression fractures. IMPRESSION: Cholelithiasis without CT evidence for acute cholecystitis. There is mild prominence of the common bile duct measuring between 7-8 mm in diameter. This measures slightly larger compared to sonographic evaluation from earlier same day. Normal appendix. Otherwise, no acute abnormalities identified in the abdomen or pelvis to explain patient's leukocytosis. Dictated by: Sidney Rene M.D. on 11/06/2020 at 19:07 Approved by: Sidney Rene M.D. on 11/06/2020 at 19:13
[2020-11-06] MEDS: SODIUM CHLORIDE 0.9% 1,000 ML 1000 ML IV (18:31)
[2020-11-06 19:11] VITALS: BP 115/70; PULSE 72; RESP 15; O2SAT 100
== END 2020-11-06 19:58 | disposition home or self-care (01) ==
PROVIDERS: Emergency Medicine; Emergency Provider Emergency Medicine; PCP Physician Assistant Medical
DX: R10.13 Epigastric pain (principal); D72.829 Elevated white blood cell count, unspecified; R74.8 Abnormal levels of other serum enzymes; R11.0 Nausea
CPT/HCPCS: 36415; 74177; 76705; 80053; 81003; 81025; 83690; 85025; 96360; 99284

== ENCOUNTER → 2020-12-18 09:41 | Outpatient (CLI) | payer BC, SELFPAY ==
[2020-12-18 11:09] LABS: COVID19 -Nasal RAPID Negative (Negative)
== END ==
PROVIDERS: PCP Registered Nurse; Visit Provider Surgery
DX: Z20.822 Contact with and (suspected) exposure to COVID-19 (principal)
CPT/HCPCS: 87635; C9803

== ENCOUNTER → 2020-12-19 14:05 | Day surgery (SDC) | payer BC, SELFPAY ==
[2020-12-14 15:21] VITALS: BMI 40.9
[2020-12-19] VITALS (11 sets, daily range): BP systolic 120–145; BP diastolic 76–88; PULSE 64–86; RESP 12–18; TEMP 36.2–36.6; O2SAT 94–99; BMI 40.7
--- NOTE | 2020-12-19 | PATH_ITS ---
[facility] Accession Number: [id number] . 01 Material submitted: . gallbladder - GALLBLADDER . 02 Diagnosis: Gallbladder, Cholecystectomy: Chronic cholecystitis, cholesterolosis, and cholelithiasis. MRV 12/22/2020 1042 Local . 02 Electronically signed: . Kiersten Park MD, Pathologist NPI- [id number] . 01 Gross description: . The specimen is received in formalin labeled gallbladder and consists of an 8.5 x 3.0 x 2.5 cm previously disrupted gallbladder with a 0.3 cm in diameter cystic duct. The serosa is santana-pink and smooth to ragged. Opening reveals green viscous bile with multiple santana-brown bosselated choleliths ranging from 0.1 to 1.5 cm. The mucosa is santana and trabeculated, and the wall thickness measures 0.1 cm. [employer] sections are submitted, to include the en face cystic duct margin (blue), in cassette A1. ([id number]) /[facility] 12/20/2020 1624 Local . 02 Pathologist provided ICD-10: K81.1, K80.60 . 02 CPT . 965856 Performed at: 01 [facility] [address], [place], [place] [id number] MD Mike Deutsch MD Phone: [phone] Performed at: 02 [facility] [address] [place], [place] [id number] MD Karina Sesay MD Phone: [phone]
[2020-12-19] MEDS: LACTATED RINGERS 1,000 ML 100 ML IV ×2 (14:49→15:57)
--- NOTE | 2020-12-19 14:59 | PM.PREOP ---
Pre-operative Note Interval Note History & Physical reviewed/Exam performed by Physician: Yes Changes to H&P: No
[2020-12-19] MEDS: CEFAZOLIN 1 GM VIAL 2 GM IV (15:10)
--- NOTE | 2020-12-19 15:31 | SUR.OPER ---
Supine on padded OR bed, head on pillow, safety belt at thigh, left arm padded and tucked at side. Right arm secured on padded arm oard <90 degrees abduction. Legs uncrossed. Padded footboard in place. Tape over blanket to secure lower legs.
[2020-12-19] MEDS: BUPIVACAINE 0.25% (PF) VIAL 30 ML INJ (15:34)
[2020-12-19] MEDS: HYDROMORPHONE 2 MG INJ IV ×2 (16:38→16:52)
--- NOTE | 2020-12-19 16:40 | P.OP_ITS ---
Operative Date/Time/Diagnoses Date of procedure: 12/19/20 Time of procedure: 16:40 Pre-op diagnosis: Biliary colic Post-op diagnosis: same Procedure & Clinicians Procedure: Laparoscopic cholecystectomy Same procedure as scheduled: Yes Indications: Biliary colic Surgeon: Aristeo Sherman Anesthesia Type: General Operative Notes Findings: Chronic cholecystitis, critical view of safety Specimen(s): other (Gallbladder) Estimated Blood Loss (mL): 100 Procedure in detail: The patient was placed supine on the table and bilateral l ower extremity compression devices were applied. Anesthesia was induced they were intubated with an endotracheal tube and received 2g of Ancef. A time-out was performed. They were prepped and draped in sterile fashion. An infraumbilical incision was made, the umbilical stalk was elevated and the fascia was sharply incised entering the abdomen atraumatically. A blunt tip 12mm balloon trocar was then inserted, pneumoperitoneum was established and inspection of the abdomen demonstrated no evidence of injury. They were placed head up and right side up and then a 11 mm port was placed high in the epigastrium and two 5mm in the right upper quadrant. The omentum was plastered to the gallbladder and this was carefully taken down. The gallbladder was grasped by the fundus and retracted over the liver and retracted laterally by the infundibulum. Using electrocautery the lateral plane between the gallbladder and the liver was opened towards the fundus. The gallbladder was then retracted laterally and the medial plane was developed in the same manner. With the gallbladder mobilized the bottom of the cystic plate was visualized. The hepatocystic triangle was meticulosly skeletonized using hook electrocautery of all fat and fibrous tissue from both the front and the back. Only two structures were then clearly seen entering the gallbladder the cystic duct and the cystic artery. With the critical view of safety fully established the cystic duct was clipped twice proximally and once distally using the 10 mm clip applied under direct visualization and then sharply divided. The cystic artery was divided in the same fashion. There was bleeding from a posterior branch of approximately 100 mL that was controlled with an additional hemo lock clip placed under direct visualization. The gallbladder was removed from the liver bed using electro cautery. The liver bed was then inspected for hemostasis and this was achieved. The abdomen was irrigated with sterile saline and inspection was made that showed the clips in good position. The specimen was removed using Endo-Catch. The abdomen was desufflated. The umbilical fascia was closed with 0 Vicryl in a [id number] fashion under direct visualization. Skin incisions were irrigated and closed with 4-0 Monocryl. 30 ml of 0.25% bupivacaine was infiltrated into the subcutaneous tissue of the incisions. The wounds were sealed with Dermabond. Patient emerged from anesthesia was extubated and transferred to recovery in stable condition. The sponge and instrument count at the end of the operation was correct. Complications: none Post-operative Condition: stable Disposition: same day surgery
[2020-12-19] MEDS: ONDANSETRON 4 MG/2 ML INJ IV (16:50)
[2020-12-19] MEDS: OXYCODONE/ACETAMINOPHEN 5/325 TABLET 1 TAB PO (17:05)
== END | disposition home or self-care (01) ==
PROVIDERS: PCP Registered Nurse; Referring Provider Surgery; Visit Provider Surgery
PROC: 0FT44ZZ Resection of Gallbladder, Percutaneous Endoscopic Approach (ICD-10-PCS; CPT 47562; principal; 2020-12-19 14:15)
DX: K80.10 Calculus of gallbladder with chronic cholecystitis without obstruction (principal); E66.9 Obesity, unspecified; Z68.41 Body mass index [BMI] 40.0-44.9, adult
CPT/HCPCS: 47562; 81025; 82962; J0330; J0690; J1100; J1170; J2405; J2704; J3010